=== PATIENT | male | born 1965 | race Caucasian/White ===

== ENCOUNTER → 2018-09-30 08:02 | Outpatient (CLI) | payer BC | END | disposition home or self-care (01) | LOC: D.MRI 08:00 | DX: M54.12 Radiculopathy, cervical region (principal) ==

== ENCOUNTER 2018-12-25 05:56 | Day surgery (SDC) | payer BC ==
[2018-12-24 08:47] LABS: CALC OSMOLALITY 281 mosm/kg (275-300); CALCIUM 8.6 mg/dL (8.5-10.1); CARBON DIOXIDE 30.1 mmol/L (21.0-32.0); CHLORIDE - SERUM 104 mmol/L (98-107); CREATININE - SERUM 0.8 mg/dL (0.6-1.3); GLUCOSE 178 mg/dL (74-106); POTASSIUM - SERUM 4.4 mmol/L (3.5-5.1); SODIUM 140 mmol/L (136-145); UREA NITROGEN 11 mg/dL (7-18); eGFR NON AFRICAN AMERICAN > 90 mL/min (90-120)
[2018-12-24 09:38] LABS: HEMATOCRIT 43.6 % (42.0-54.0); HEMOGLOBIN 15.2 g/dL (13.5-17.5); MCH 29.6 pg (26.0-34.0); MCHC 34.9 g/dL (31.0-37.0); MEAN PLATELET VOLUME 9.6 fL (7.4-10.4); RBC 5.13 10x6/uL (4.20-6.10); RDW 12.7 % (11.5-14.5)
[~2018-12-25] VITALS: Ht 182.9 cm; Wt 118.2 kg
[2018-12-25] VITALS (13 sets, daily range): BP systolic 92–148; BP diastolic 44–99; Ht 182.9 cm; Wt 118.2 kg
--- NOTE | ~2018-12-25 | OP ---
PATIENT NAME: JOSE MARTINI MEDICAL RECORD: [id number] :69 LOCATION:[facility] ADMISSION DATE: SURGEON: JAE BARKER MD DATE OF OPERATION: 12/26/2018 PREOPERATIVE DIAGNOSIS: C6 and C7 radiculopathy bilaterally secondary to osteophyte formation and disc herniation at C5-C6 and C6-7. POSTOPERATIVE DIAGNOSIS: C6 and C7 radiculopathy bilaterally secondary to osteophyte formation and disc herniation at C5-C6 and C6-7. PROCEDURE: Anterior cervical discectomy with removal of osteophytes posteriorly at C5-6 and C6-7, Mobi-C arthroplasty with artificial cervical disc at C5-6 and C6-C7 with a 15 x 15 mm x 5 height artificial disc at each level. SURGEON: Jae Barker MD DESCRIPTION AND TECHNIQUE: After induction of general endotracheal anesthesia, the patient was positioned supine on the operating table. The cervical spine was at neutral position. Fluoroscopic x-ray and freer localized the C5-C6 and C6-C7 interspaces. After infiltration of 1:100,000 epinephrine and 1% lidocaine, a transverse skin incision was carried out at the mid body of C6. The platysma was divided with Bovie cautery. Then, using blunt and sharp dissection with Metzenbaum scissors, I proceeded in avascular plane medial to the carotid sheath. Next, the C5-C6 and C6-C7 interspaces were identified with a spinal needle. Each disc space was incised with a #11 blade. [place] distracting pins were used to distract the disc space. Disc material was removed with pituitary rongeurs and curettes. Curettes were used to prepare endplates. I perform no bone work on the anterior portion of the disc space. Osteophytes were drilled away posteriorly at each level under microscopic illumination. The posterior longitudinal ligament was removed with Cloward rongeurs. Following this, the dura was decompressed well as the nerve roots on both sides at C5-6 and C6-7. Each disc space was done sequentially and each artificial disc was placed sequentially. The C6-C7 interspace was fitted with artificial cervical disc using trials. Good position of artificial discs was confirmed with fluoroscopic x-ray on AP and lateral. Subsequently, the C5-C6 interspace was prepared and the artificial disc was placed in the disc space under fluoroscopic control. Good position of hardware was confirmed with fluoroscopic x-ray on AP and lateral views. Meticulous hemostasis was maintained throughout the wound. The wound was irrigated with copious amounts of Ancef irrigant solution. The platysma and subdermal layer closed with interrupted 3-0 Vicryl suture. The skin was reapproximated with Steri-Strips and benzoin. A sterile dressing was applied to the wound. The patient was awakened in good condition and taken to recovery. All counts were reported as correct. Estimated blood loss was minimal. TRANSINT:[id number] Voice Confirmation ID: [id number] DOCUMENT ID: [id number] OPERATIVE REPORT [id number] JOSE MARTINI JOHN MD CC: [id number] DICTATION DATE: 01/11/192145 CONTRACT NEGOTIATION MANAGER: 01/12/1929 [facility] 12/26/[address] [address]
[~2018-12-25 05:56] MED LIST: CARTIA XT180 MG PO; GLUCOPHAGE500 MG PO
--- NOTE | 2018-12-25 12:11 | NUR ---
NO NUMBNESS OR TINGLING NO TRACHEAL DEVIATION OR DIFFICULTY SWALLOWING. EQUAL STRENGHTS ALL 4 EXTREMETIES
--- NOTE | 2018-12-25 12:40 | NUR ---
REC'D VIA BED FROM RECOVERY, AAO, CONNECTED TO ICU MONITORS, VSS, C/O PAIN 4/10, RIGHT NECK WITH CLEAR DURA COWAN DRESSING, NO BLEEDING NOTED, ASSESSMENT COMPLETED PER FLOWSHEET, ACCLAMATED TO ICU, CALL LIGHT IN REACH
--- NOTE | 2018-12-25 13:52 | NUR ---
NORCO 5/325 X2 PO, DECADRON 8 MG IVP, ZOFRAN 4 MG IVP GIVEN PER ORDER, PAIN 5/10
--- NOTE | 2018-12-25 17:13 | NUR ---
PT ARRIVED TO UNIT AROUND 1610. AA&OX4. DURA COWAN DRESSING OVER ANTERIOR NECK INCISION SITE. C-COLLAR IN PLACE. PT ASKED TO USE BATHROOM. AMBULATED WITH MINIMAL ASSIST. CONNECTED TO TELEMETRY MONITORS. ON 2L OF O2 VIA NC. HAS L-HAND 20G PIV WITH D51/2NS INFUSING AT 50ML/HR. SPOUSE AT BEDSIDE. SAFETY MEASURES IN PLACE. WILL CONTINUE TO MONITOR.
--- NOTE | 2018-12-25 17:17 | NUR ---
ICE CHIPS AND ICE WATER PROVIDED. CHOCOLATE ICE CREAM PROVIDED PER PT REQUEST.
--- NOTE | 2018-12-25 17:26 | NUR ---
TOLERATED CHOCOLATE ICE CREAM WELL. ADVANCED DIET TO DIABETIC DIET AT THIS TIME. DINNER TRAY REQUESTED.
--- NOTE | 2018-12-25 19:00 | NUR ---
REPORT RECIEVED, SHIFT ASSESSMENT COMPLETE, PLEASE SEE FLOW SHEETS FOR DETAILS. LAYING BED. STATES PAIN 2/10 AT INCISION SITE. PROVIDED ICE CHIPS PER REQUEST. HEMODYNAMICALLY STABLE. BED LOW AND LOCKED, CALL LIGHT IN REACH. WILL CONTINUE PLAN OF CARE.
--- NOTE | 2018-12-25 19:07 | NUR ---
CALLED AND NOTIFIED DR BORJAS OF PATIENT NEW ROOM NUMBER.
--- NOTE | 2018-12-25 21:00 | NUR ---
AT BEDSIDE. UPDATE GIVEN. HEMODYNAMICALLY STABLE. PROVIDED PATIENT NEEDS. UP TO RESTROOM WITH LITTLE TO NO ASSIST BY . TOLERATED ACTIVITY WELL. WILL CONTINUE PLAN OF CARE.
--- NOTE | 2018-12-25 21:34 | NUR ---
PATIENT CONCERNED ABOUT BLOOD SUGAR, THIS WAS CHECKED VIA FINGER STICK AND RESULT CALLED TO DR BORJAS, ORDERS RECIEVED TO RESTART METFORMIN AND TO PUT ON HUMULIN REGULAR ON A LOW SLIDING SCALE.
--- NOTE | 2018-12-25 22:26 | NUR ---
RECIEVED CALL FROM DR BORJAS TO STOP DECADRON.
--- NOTE | 2018-12-25 22:34 | NUR ---
REASSESSMENT COMPLETE, PLEASE SEE FLOW SHEETS FOR DETAILS. DENIES PAIN, PROVIDED FOR NEEDS. HEMODYNAMICALLY STABLE. WILL CONTINUE PLAN OF CARE.
[2018-12-26] VITALS (10 sets, daily range): BP systolic 97–138; BP diastolic 46–80
--- NOTE | 2018-12-26 01:00 | NUR ---
CALL LIGHT ANSWERED. MED GIVEN PER NOV. PT AMBULATED TO BATHROOM MINIMAL ASSISTANCE GIVEN STEADY GAIT NOTED. VSS WILL CONTINUE TO MONITOR.
--- NOTE | 2018-12-26 02:49 | NUR ---
REASSESSMENT COMPLETED. SEE FLOWSHEET FOR FULL DETAILS. PT RESTING COMFORTABLY IN ROOM. VSS. CALL LIGHT IN REACH. BED IN LOW POSITION. WILL CONTINUE TO MONITOR STATUS.
--- NOTE | 2018-12-26 05:45 | NUR ---
RESTING. DENIES PAIN/NEEDS. VSS. CONTINUING TO MONITOR.
--- NOTE | 2018-12-26 07:30 | NUR ---
AWAKE AND ALERT SKIN WARM AND DRY. INCISION ANTERIOR NECK DRY AND INTACT. NO DRAINAGE OR REDNESS NOTED. HAND RHEUMATOLOGY NURSE EQUAL BILATERALLY. STATES A LITTLE NUMBNESS IN FINGER, BUT NOTHING LIKE IT WAS BEFORE SURGERY. DENIES PAIN.
--- NOTE | 2018-12-26 08:50 | NUR ---
BREAKFAST SERVED ATE WELL [employer] APPETITE DENIES ANY SWALLOWING PROBLEMS. AT BEDSIDE UPDATE GIVEN. NO DISTRESS
--- NOTE | 2018-12-26 11:26 | NUR ---
DR. BORJAS HERE. ORDERS TO DISCHARGE RECEIVED. REVIEWED DISHCARGE INSTRUCTIONS WITH PATEINT. PRESCRIPTION FOR PAIN MEDS GIVEN TO PATIENT. PER WHEEL CHAIR PATIENT DISCHARGE HOME WITH . NO DISTRESS. DENIES PAIN
== END 2018-12-26 11:29 | disposition home or self-care (01) ==
LOC: D.OPS 05:56 → D.CVICU 05:56 → D.OPS 07:30 → D.PAN 07:30 → D.ICU 12:21 → D.CVICU 16:10 → D.OPS 12-26 11:29
PROVIDERS: ATTEND Neurological Surgery
DX: M48.061 Spinal stenosis, lumbar region without neurogenic claudication (principal); M50.923 Unspecified cervical disc disorder at C6-C7 level